=== PATIENT | male | born 1980 | race Caucasian/White ===

== ENCOUNTER 2020-03-27 20:13 | Emergency (ER) | payer OTHER ==
[2020-03-27] MEDS ORDERED: Lidocaine 1% w/Epinephrine 1:100K 20 ML VIAL ONE (20:46)
[2020-03-27] MEDS ORDERED: Bacitracin 1 PK ONE (20:53)
== END 2020-03-27 21:07 | disposition home or self-care (01) ==
LOC: MADERS 20:13
DX: S01.81XA Laceration without foreign body of other part of head, initial encounter (principal); F17.220 Nicotine dependence, chewing tobacco, uncomplicated; Z79.899 Other long term (current) drug therapy; W26.8XXA Contact with other sharp object(s), not elsewhere classified, initial encounter
CPT/HCPCS: 12011

== ENCOUNTER 2020-12-06 14:14 | Outpatient (CLI) | payer OTHER ==
[2020-12-06 14:36] LABS: Amphetamine Detected (NotDetected); Barbiturates Screen Not Detected (NotDetected); Benzodiazepine Screen Not Detected (NotDetected); Cocaine Metabolite Screen Not Detected (NotDetected); Medtox Control Line Valid? VALID (VALID); Methadone Not Detected (NotDetected); Methamphetamine Not Detected (NotDetected); Opiate Screen Not Detected (NotDetected); Oxycodone Screen Not Detected (NotDetected); Phencyclidine (PCP) Not Detected (NotDetected); THC/Cannabinoid Screen Not Detected (NotDetected); Tricyclic Screen Not Detected (NotDetected)
== END 2020-12-06 14:15 | disposition home or self-care (01) ==
LOC: MADLAB 14:14
PROVIDERS: ATTEND Family Medicine
DX: Z51.81 Encounter for therapeutic drug level monitoring (principal); Z79.899 Other long term (current) drug therapy
CPT/HCPCS: 80306

== ENCOUNTER 2021-09-05 01:57 | Emergency (ER) | payer OTHER ==
[2021-09-05] MEDS ORDERED: Ketorolac Tromethamine 30 MG/ML VIAL ONE (02:28)
[2021-09-05 02:47] LABS: #Basophils 0.1 thou/uL (0.0-0.2); #Eosinphils 0.4 thou/uL (0.0-0.7); #Lymphocytes 2.1 thou/uL (1.20-3.40); #Neutrophils 6.7 thou/uL (1.40-6.50); %Basophils 0.9 % (0.0-1.0); %Eosinophils 3.7 % (0.0-10.0); %Lymphocytes 20.4 % (21.0-51.0); Hemoglobin 16.1 g/dL (14.0-18.0); Mean Corpuscular HGB CONC 33.2 g/dL (32.0-36.0); Mean Corpuscular Hemoglobin 28.8 pg (27.0-31.0); Mean Corpuscular Volume 86.7 fL (78.0-98.0); Mean Platelet Volume 11.2 fL (7.4-10.4); Platelet Count 257 thou/uL (130-400); RBC Distribution Width 12.5 % (11.5-14.5); Red Blood Cell (RBC) Count 5.61 mill/uL (4.70-6.10); White Blood Cell (WBC) Count 10.3 thou/uL (4.8-10.8)
[2021-09-05 03:08] LABS: ALT (SGPT) 27 U/L (8-55); AST (SGOT) 27 U/L (5-34); Albumin 4.4 g/dL (3.5-5.0); Alkaline Phosphatase 60 U/L (40-110); Anion Gap 17 mmol/L (10-20); BUN (Urea Nitrogen) 12 mg/dL (8.9-20.6); Bilirubin, Total 0.6 mg/dL (0.2-1.2); Calc. Creatinine Clearance 0 mL/min (70-130); Calcium 9.6 mg/dL (7.8-10.44); Carbon Dioxide 27 mmol/L (22-29); Chloride 102 mmol/L (98-107); Globulin 3.6 g/dL (2.4-3.5); Glucose 106 mg/dL (70-105); Lipase 61 U/L (8-78); Potassium 3.7 mmol/L (3.5-5.1); Sodium 142 mmol/L (136-145)
[2021-09-05] MEDS ORDERED: Sodium Chloride 0.9% 100 ML BAG ONE (07:30)
[2021-09-05] MEDS ORDERED: Iopamidol 370 76% 125 ML VIAL FS ONE (11:14)
== END 2021-09-05 06:00 | disposition home or self-care (01) ==
LOC: MADERS 01:57
DX: J90 Pleural effusion, not elsewhere classified (principal); R91.8 Other nonspecific abnormal finding of lung field; F17.220 Nicotine dependence, chewing tobacco, uncomplicated
CPT/HCPCS: 71046; 71275; 80053; 83690; 84484; 85025; 85379; 93005; 96374; J1885; Q9967